=== PATIENT | female | born 1940 | race Caucasian/White ===

== ENCOUNTER 2018-08-11 14:05 | Observation (INO) ==
--- NOTE | 2018-08-11 14:11 | ED ---
Triage General Time Seen by Provider: 08/11/18 14:10 History of Present Illness HPI narrative: 77 y/o female presents with lightheadedness and paresthesias in the right lower lip, some chest heaviness which started last night. Spoke with Dr. Oliva who referred her to ed. Denies other focal neurologic symptoms. Allergies Allergies Allergy/AdvReac Type Severity Reaction Status Date / Time No Known Allergies Allergy Unknown Uncoded 01/08/08 08:47 Vital Signs Recall Vital Signs: Initial Documented Vital Signs Temperature 97.8 F 08/11/18 14:07 Pulse Rate 80 08/11/18 14:07 Respiratory Rate 18 08/11/18 14:07 Blood Pressure 168/74 H 08/11/18 14:07 Pulse Oximetry 97 08/11/18 14:07 Last Documented Vital Signs Temperature 97.8 F 08/11/18 14:07 Pulse Rate 80 08/11/18 14:07 Respiratory Rate 18 08/11/18 14:07 Blood Pressure 168/74 H 08/11/18 14:07 Pulse Oximetry 97 08/11/18 14:07 Vital Signs 3 l l l l 08/11/18 14:07 l l 08/11/18 14:07 l l Height 167.64 cm l l Weight 72.575 kg l l BMI 25.8 l l BP 168/74 H l l Blood Pressure Location l l Position Sitting l l Respiration 18 l l Pulse 80 l l Pulse Source l l Temp 97.8 F l l Temp Source Oral l l Pulse Oximetry (%) 97 l l Oxygen Delivery Method l l Oxygen Flow Rate l l Comment PMFSH Social History Social History Recent Travel in [facility] within the Last 8 Weeks: No Recent Out of Country Travel within the Last 8 Weeks: No
--- NOTE | 2018-08-11 14:56 | CT ---
EXAM DATE: 08/11/2018 2:45 PM EDT AGE/SEX: 77 years / Female INDICATIONS: Dizziness, weakness. CLINICAL DATA: This is the patient's initial encounter. Patient reports that signs and symptoms have been present for 1 day and indicates a pain score of 0/10. MEDICAL/SURGICAL HISTORY: None. None. RADIATION DOSE: 34.94 CTDI (mGy) COMPARISON: No prior exams available for comparison. TECHNIQUE: CT of the head without contrast. Using automated exposure control and adjustment of the mA and/or kV according to patient size, radiation dose was kept as low as reasonably achievable to ob tain optimal diagnostic quality images. DICOM format image data is available electronically for revi ew and comparison. FINDINGS: Cerebrum: The ventricles are normal for age. No evidence of midline shift, mass lesion, hemorrhage or acute infarction. No extraaxial fluid collections are seen. Mild to moderate periventricular and subcortical white matter small vessel ischemic changes are noted bilaterally. Scattered old tiny lacu lisa infarcts are noted within the bilateral basal ganglia. Posterior Fossa: The cerebellum and brainstem are intact. The 4th ventricle is midline. The cerebe llopontine angle is unremarkable. Extracranial: The visualized portion of the orbits is intact. Skull: The calvaria is intact. No evidence of skull fracture. CONCLUSION: 1. Mild to moderate periventricular and subcortical white matter small vessel ischemic changes bilat erally. 2. Scattered old tiny lacunar infarcts within the bilateral basal ganglia. 3. No acute infarct, acute hemorrhage, midline shift or extra-axial fluid collections. . Electronically signed by: Jacob Talbot MD 08/11/2018 2:54 PM EDT
--- NOTE | 2018-08-11 15:27 | XR ---
EXAM DATE: 08/11/2018 3:09 PM EDT AGE/SEX: 77 years / Female INDICATIONS: . Numbness in her lip, syncope, dizzy CLINICAL DATA: This is the patient's initial encounter. Patient reports that signs and symptoms have been present for 2 days and indicates a pain score of 0/10. MEDICAL/SURGICAL HISTORY: . breast cancer, arteries in legs blocked . right breast removed COMPARISON: No prior exams available for comparison. FINDINGS: PA and lateral views of the chest demonstrate the lungs to be symmetrically aerated without evidence of mass, infiltrate or effusion. The cardiomediastinal contours are unremarkable. Osseous structures are intact. There is prominence of the aortic knob is with calcification characteristic of atheroscle rotic vascular disease. CONCLUSION: No acute cardiopulmonary disease. Electronically signed by: Herbert Bermudez MD 08/11/2018 3:25 PM EDT
[2018-08-11] MEDS ORDERED: Labetalol HCl Inj 100 MG/20 ML Vial IV.PUSH ONE (19:21)
[2018-08-11] MEDS ORDERED: Sod Chloride 0.9% Inj 1,000 ML IV.CONT SCH (19:30)
--- NOTE | 2018-08-11 19:34 | ED ---
HPI General Chief complaint: Neuro Symptoms/Deficit Stated complaint: doctor sent Time Seen by Provider: 08/11/18 14:10 Source: patient Limitations: no limitations History of Present Illness HPI narrative: The patient is a 77 year old female who presents to the [facility] emergency department with a history of noticing numbness and tingling to the right side of her lower lip that began around 8:30 PM last night. She reports that the symptoms have been constant. She denies having any numbness or tingling of any other location. She denies having any weakness of her extremities. She denies having any facial droop or difficulty with word finding ability. She denies having any headache, neck pain, chest pain, chest pressure, or shortness of breath. She did discuss this with her primary care physician, Dr. Matias and was told to come to the emergency department. She denies having any prior history of TIA or CVA. The patient is on 324 mg of aspirin daily. She reports that she was on Plavix for peripheral arterial disease status post angioplasty of both legs, however she reports that she had a significant amount of bruising and was switched to just 324 mg of aspirin daily. She denies any prior history of coronary artery disease. Review of systems otherwise, the patient denies having any known recent fevers, cough, congestion, neck pain, chest pain, shortness of breath, abdominal pain, vomiting , diarrhea, urinary symptoms, or other neurologic symptoms. Related Data Home Medications Medication Instructions Recorded Confirmed aspirin [Aspir-81] 324 mg PO DAILY 08/11/18 08/11/18 atorvastatin [Lipitor] 80 mg PO DAILY 08/11/18 08/11/18 calcium carbonate [Calcium 500] 500 mg PO DAILY 08/11/18 08/11/18 lisinopril 10 mg PO DAILY 08/11/18 08/11/18 verapamil 240 mg PO DAILY 08/11/18 08/11/18 Allergies Allergy/AdvReac Type Severity Reaction Status Date / Time acetaminophen [From Percocet] Allergy Vomiting Verified 08/11/18 18:46 betamethasone Allergy Hives Verified 08/11/18 18:46 [From Celestone] oxycodone [From Percocet] Allergy Vomiting Verified 08/11/18 18:46 Review of Systems ROS: all other systems reviewed are negative [facility] Medical History Medical History High cholesterol (Acute) History of breast cancer (Acute) Hypertension (Acute) PAD (peripheral artery disease) (Acute) Peripheral vascular angioplasty status (Acute) Surgical History Surgical History H/O mastectomy (Acute) Hx of appendectomy (Acute) S/P breast biopsy, left (Acute) Social History Social History Smoking Status: Former smoker How Often Do You Have a Drink Containing Alcohol: 2 to 4 times a month Recent Travel in [facility] within the Last 8 Weeks: No Recent Out of Country Travel within the Last 8 Weeks: No Immunization History Tetanus Immunization: <5 Years Hx Influenza Vaccine This Season: No Exam Const General: cooperative, no acute distress and well developed Nutritional Appearance: well nourished Orientation: alert, awake and oriented x3 HENMT Head: normocephalic and atraumatic Nose: no nasal discharge and no epistaxis Mouth: moist mucous membranes Throat: posterior oropharynx normal and uvula midline Eyes Sclera: normal sclerae Pupils: PERRL EOM: EOM intact bilaterally Neck Neck: no meningeal signs, trachea midline and no JVD Resp Effort & Inspection: no use of accessory muscles Auscultation: clear to auscultation bilaterally Cardio Rate: regular rate Rhythm: regular rhythm Heart Sounds: no gallops, no murmurs and no rubs GI Inspection: non-distended Palpation: soft, no hepatosplenomegaly and nontender Auscultation: normal bowel sounds Back/Spine/Pelvis Back: no CVA tenderness Skin General: dry skin (warm) Neuro General: alert, awake and oriented x3 Cranial Nerves: CN's II-XI intact bilaterally Speech: speech normal Motor: strength 5/5 throughout and no movement abnormalities noted Sensory Exam: other (Dermatomal testing is intact bilaterally except along the right side of the chin, the patient reports having decreased sensation compared to the left.) Extrem General: normal to inspection, no clubbing, no cyanosis and no edema Psych Mood: congruent mood Affect: normal affect Judgment: judgment good Course Consultations Consultation #1: The patient's case including history, pertinent physical examination findings, and laboratory studies were discussed with Dr. Hu. He recommended that the patient have an MRI with and without contrast, MRA of the head, MRA of the carotids with contrast done this evening. He at this point does not want any other medications administered. He prefers to be called with the results. Time: 19:31 Consultation #2: The patient's case including history, pertinent physical examination findings, and laboratory studies were discussed with Dr. Razo. It was agreed that the patient would be admitted to the [facility] hospitalist service. Initial Documented Vital Signs Temperature 97.8 F 08/11/18 14:07 Pulse Rate 80 08/11/18 14:07 Respiratory Rate 18 08/11/18 14:07 Blood Pressure 168/74 H 08/11/18 14:07 Pulse Oximetry 97 08/11/18 14:07 Last Documented Vital Signs Temperature 97.8 F 08/12/18 04:39 Pulse Rate 78 08/12/18 04:39 Respiratory Rate 15 08/12/18 04:39 Blood Pressure 181/79 H 08/12/18 04:39 Pulse Oximetry 99 08/12/18 04:39 NIH Stroke Scale NIHSS Time Completed NIHSS Time Completed: 19:27 NIH Stroke Scale Level of Consciousness: 0-Alert Orientation Questions: 0-Answers both correct Responds to Commands: 0-Both tasks correct Gaze Eye Movement: 0-Horizontal movement WNL Visual Chase: 0-No visual field defect Facial Movement: 0-Normal Motor Functions Arm LEFT: 0-No drift Motor Functions Arm RIGHT: 0-No drift Motor Functions Leg LEFT: 0-No drift Motor Functions Leg RIGHT: 0-No drift Limb Ataxia: 0-No ataxia Sensory Loss: 1-Mild sensory loss Best Language: 0-Normal Articulation: 0-Normal Extinction or Inattention Sensory: 0-Absent Total: 1 Medical Decision Making MDM Narrative Medical decision making narrative: The patient's laboratory studies revealedDuring the course of the patient's emergency department visit, the patient's history, examination, and differential diagnosis were reviewed with the patient. The patient was placed on a court recording monitor with oximetry and frequent blood pressure monitoring. The patient had IV access obtained and blood work sent for analysis. The diagnostic evaluation was started regarding the patient's numbness and tingling to the right side of the lower lip. The patient's blood sugar was found to be normal. The patient was initially provided normal saline at 70 mL/h, the patient's head of the bed was placed flat. The patient's blood pressure was 224 systolic on my arrival to the room. The patient was given labetalol 10 mg IV. A call was placed out to the neurologist on-call. I spoke to Dr. Hu regarding this patient's case. He recommended MRIs be done after CT scan if the CT scan shows no evidence of bleeding. CT scan of the brain was read asNegative for hemorrhage, however the patient was noted to have mild to moderate periventricular and subcortical white matter small vessel ischemic changes bilaterally, scattered old tiny lacunar infarcts within the base basal ganglion bilaterally. No acute infarct. No acute hemorrhage, midline shift, or extra-axial fluid collections. The patient had a chest x-ray done that showed no acute abnormality. Laboratory studies revealed a CBC that is unremarkable, PT PTT within normal limits, chemistries remarkable for BUN of 22, GFR 56, AST 42, cardiac enzymes within normal limits. The patient's results were discussed with the patient, including the plan of care. I explained that further testing and/ or monitoring is indicated based on the patient's history, examination, and/ or laboratory findings. Therefore, I recommended admission for additional evaluation. The patient expressed understanding and was agreeable with this plan. The patient was admitted to the hospital in stable condition and sent to a bed under the care of the [facility] hospitalist service. Medical Screen Exam Complete: Yes Emergency Medical Condition: Yes Differential Diagnosis Differential Diagnosis: Ischemic stroke, versus hemorrhagic stroke, versus transient ischemic attack, versus intracranial mass Medical Records Medical records reviewed: Yes I reviewed the patient's medical records. Lab Data Lab results reviewed: Yes I reviewed the patient's lab results. Result diagrams: 08/11/18 19:51 08/11/18 19:51 Lab Results 08/11/18 08/11/18 08/11/18 Range/Units 18:52 19:51 19:51 WBC 5.3 (4.0-11.0) th/mm3 RBC 4.55 (4.00-5.30) mil/mm3 Hgb 14.3 (11.6-15.3) gm/dL Hct 43.1 (35.0-46.0) % MCV 94.9 (80.0-100.0) fL MCH 31.4 (27.0-34.0) pg MCHC 33.1 (32.0-36.0) % RDW 13.9 (11.6-17.2) % Plt Count 184 (150-450) th/mm3 MPV 8.6 (7.0-11.0) fL Neut % (Auto) 58.0 (16.0-70.0) % Lymph % (Auto) 28.8 (9.0-44.0) % Sawyer % (Auto) 9.5 H (0.0-8.0) % Eos % (Auto) 2.3 (0.0-4.0) % Baso % (Auto) 1.4 (0.0-2.0) % Neut # (Auto) 3.1 (1.8-7.7) th/mm3 Lymph # (Auto) 1.5 (1.0-4.8) th/mm3 Sawyer # (Auto) 0.5 (0.0-0.9) th/mm3 Eos # (Auto) 0.1 (0.0-0.4) th/mm3 Baso # (Auto) 0.1 (0.0-0.2) th/mm3 WBC Differential . Differential Comment Auto diff final PT (9.8-11.6) sec INR Ratio APTT (24.3-30.1) sec Sodium 143 (136-145) meq/L Potassium 3.5 (3.5-5.1) meq/L Chloride 105 (98-107) meq/L Carbon Dioxide 27.6 (21.0-32.0) meq/L Anion Gap 10 (5-15) meq/L BUN 22 H (7-18) mg/dL Creatinine 0.96 (0.50-1.00) mg/dL Estimated GFR 56 L (>89) mL/min Random Glucose 87 (74-106) mg/dL Calcium 9.0 (8.5-10.1) mg/dL Total Bilirubin 0.8 (0.2-1.0) mg/dL AST 42 H (15-37) U/L ALT 43 (10-53) U/L Alkaline Phosphatase 100 (45-117) U/L Total Creatine Kinase (26-192) U/L Troponin I (0.02-0.05) ng/mL Total Protein 7.3 (6.4-8.2) g/dL Albumin 3.6 (3.4-5.0) g/dL Urine Color Yellow (Yellw/Straw) Urine Clarity Clear (Clear) Urine pH 6.0 (5.0-8.5) Ur Specific Perley 1.015 (1.002-1.035) Urine Protein Negative (Neg-Trace) mg/dL Urine Glucose (UA) Negative (Negative) mg/dL Urine Ketones Trace H (Negative) mg/dL Urine Occult Blood Negative (Negative) Urine Nitrate Negative (Negative) Urine Bilirubin Negative (Negative) Urine Urobilinogen Less than 2 (Less than 2) mg/dL Ur Leukocyte Esterase Trace H (Negative) Urine RBC Less than 1 (0-3) /hpf Urine WBC 2 (0-5) /hpf Ur Squamous Epith Cells 3 (0-5) /hpf Urine Bacteria Rare H (None) /hpf Hyaline Casts 4 (0-3) /lpf Micro UA Comment Culture not ind Ur Microscopic Review Not Reportable Urine Culture Comments Culture not ind 08/11/18 08/11/18 Range/Units 19:51 19:51 WBC (4.0-11.0) th/mm3 RBC (4.00-5.30) mil/mm3 Hgb (11.6-15.3) gm/dL Hct (35.0-46.0) % MCV (80.0-100.0) fL MCH (27.0-34.0) pg MCHC (32.0-36.0) % RDW (11.6-17.2) % Plt Count (150-450) th/mm3 MPV (7.0-11.0) fL Neut % (Auto) (16.0-70.0) % Lymph % (Auto) (9.0-44.0) % Sawyer % (Auto) (0.0-8.0) % Eos % (Auto) (0.0-4.0) % Baso % (Auto) (0.0-2.0) % Neut # (Auto) (1.8-7.7) th/mm3 Lymph # (Auto) (1.0-4.8) th/mm3 Sawyer # (Auto) (0.0-0.9) th/mm3 Eos # (Auto) (0.0-0.4) th/mm3 Baso # (Auto) (0.0-0.2) th/mm3 WBC Differential Differential Comment PT 10.9 (9.8-11.6) sec INR 1.1 Ratio APTT 24.5 (24.3-30.1) sec Sodium (136-145) meq/L Potassium (3.5-5.1) meq/L Chloride (98-107) meq/L Carbon Dioxide (21.0-32.0) meq/L Anion Gap (5-15) meq/L BUN (7-18) mg/dL Creatinine (0.50-1.00) mg/dL Estimated GFR (>89) mL/min Random Glucose (74-106) mg/dL Calcium (8.5-10.1) mg/dL Total Bilirubin (0.2-1.0) mg/dL AST (15-37) U/L ALT (10-53) U/L Alkaline Phosphatase (45-117) U/L Total Creatine Kinase 83 (26-192) U/L Troponin I Less than 0.02 L (0.02-0.05) ng/mL Total Protein (6.4-8.2) g/dL Albumin (3.4-5.0) g/dL Urine Color (Yellw/Straw) Urine Clarity (Clear) Urine pH (5.0-8.5) Ur Specific Perley (1.002-1.035) Urine Protein (Neg-Trace) mg/dL Urine Glucose (UA) (Negative) mg/dL Urine Ketones (Negative) mg/dL Urine Occult Blood (Negative) Urine Nitrate (Negative) Urine Bilirubin (Negative) Urine Urobilinogen (Less than 2) mg/dL Ur Leukocyte Esterase (Negative) Urine RBC (0-3) /hpf Urine WBC (0-5) /hpf Ur Squamous Epith Cells (0-5) /hpf Urine Bacteria (None) /hpf Hyaline Casts (0-3) /lpf Micro UA Comment Ur Microscopic Review Urine Culture Comments Imaging Data Radiologist's impression: Chest X-Ray 08/11/18 14:11 CONCLUSION: No acute cardiopulmonary disease. Head CT 08/11/18 14:11 CONCLUSION: 1. Mild to moderate periventricular and subcortical white matter small vessel ischemic changes bilaterally. 2. Scattered old tiny lacunar infarcts within the bilateral basal ganglia. 3. No acute infarct, acute hemorrhage, midline shift or extra-axial fluid collections. . Head MRI 08/11/18 19:35 CONCLUSION: 1. Moderate chronic ischemic changes in the periventricular white matter. No recent infarct. Remote small lacunar infarcts in the basal ganglia. Neck MRA 08/11/18 19:36 CONCLUSION: 1. Mild smooth stenoses of the proximal left subclavian artery and proximal internal carotid arteries bilaterally. No hemodynamically significant stenosis. No evidence for dissection. Right vertebral artery is patent. Left vertebral artery is diminutive but patent. Percent stenosis is calculated using the diameter of the stenotic region over the diameter of the normal distal internal carotid artery Head MRA 08/11/18 19:37 CONCLUSION: 1. No hemodynamically significant stenosis. ECG Data Attestation: I personally reviewed and interpreted this ECG as follows: Interpretation: The patient had a EKG done on arrival. The patient's EKG reveals a heart rate of 73, QRS duration is 82. This is a sinus rhythm, QTC [address] segment elevation. Nonspecific ST downsloping and aVL. Discharge Plan Discharge Disposition Patient Disposition: 30 Still Patient Discharge Details Diagnosis: Neurological symptoms Physicians Team ED Provider: Na Beltrán Primary Care Provider: UNKNOWN, Attending Provider: Sergei Razo Other Providers: Sukhdeep Spaulding Discharge Interventions Interventions: ED Discharge Assessment Last Done: 08/11/18 22:36 Vital Signs Last Done: 08/11/18 21:01 Status ED Status: Left Department Discharge Information Discharge Date/Time: 08/11/18 22:37
[2018-08-11 20:24] LABS: Baso # (Auto) 0.1 th/mm3 (0.0-0.2); Baso % (Auto) 1.4 % (0.0-2.0); Eos # (Auto) 0.1 th/mm3 (0.0-0.4); Eos % (Auto) 2.3 % (0.0-4.0); Hematocrit 43.1 % (35.0-46.0); Hemoglobin 14.3 gm/dL (11.6-15.3); Lymph # (Auto) 1.5 th/mm3 (1.0-4.8); Lymph % (Auto) 28.8 % (9.0-44.0); Mean Corpuscular HGB Conc 33.1 % (32.0-36.0); Mean Corpuscular Hemoglobin 31.4 pg (27.0-34.0); Mean Corpuscular Volume 94.9 fL (80.0-100.0); Mean Platelet Volume 8.6 fL (7.0-11.0); Mono # (Auto) 0.5 th/mm3 (0.0-0.9); Mono % (Auto) 9.5 % (0.0-8.0); Neut # (Auto) 3.1 th/mm3 (1.8-7.7); Platelet Count 184 th/mm3 (150-450); Red Blood Count 4.55 mil/mm3 (4.00-5.30); Red Cell Distribution Width 13.9 % (11.6-17.2); White Blood Count 5.3 th/mm3 (4.0-11.0)
[2018-08-11 20:25] LABS: Bacteria,Urine Rare /hpf; Bilirubin,Urine Negative (Negative); Clarity,Urine Clear (Clear); Color,Urine Yellow (Yellw/Straw); Glucose,Urine (UA) Negative (Negative); Hyaline Casts,Urine 4 /lpf (0-3); Leukocyte Esterase,Urine Trace (Negative); Nitrite,Urine Negative (Negative); Specific Gravity,Urine 1.015 (1.002-1.035); Squamous Epithelial Cell,Urine 3 /hpf (0-5)
[2018-08-11 20:25] LABS: Activated Partial Thrombo Time 24.5 sec (24.3-30.1); INR 1.1 Ratio; Prothrombin Time 10.9 sec (9.8-11.6)
[2018-08-11 21:07] LABS: Albumin 3.6 g/dL (3.4-5.0); Anion Gap 10 meq/L (5-15); Aspartate Aminotransferase 42 U/L (15-37); Blood Urea Nitrogen 22 mg/dL (7-18); Carbon Dioxide 27.6 meq/L (21.0-32.0); Chloride 105 meq/L (98-107); Glomerular Filtration Rate 56 mL/min (>89); Glucose,Random 87 mg/dL (74-106); Potassium 3.5 meq/L (3.5-5.1); Sodium 143 meq/L (136-145)
[2018-08-11 21:09] LABS: Alanine Aminotransferase 43 U/L (10-53)
[2018-08-11 21:11] LABS: Alkaline Phosphatase 100 U/L (45-117); Total Protein 7.3 g/dL (6.4-8.2)
[2018-08-11 21:16] LABS: Creatine Kinase 83 U/L (26-192)
[2018-08-11] MEDS ORDERED: Gadobutrol PF 10 MMOL/10 ML Vial (for RAD) IV.SIG ONE (21:51)
--- NOTE | 2018-08-11 22:34 | MR ---
EXAM DATE: 08/11/2018 10:03 PM EDT AGE/SEX: 77 years / Female INDICATIONS: Stroke. Right sided weakness. CLINICAL DATA: This is the patient's initial encounter. Patient reports that signs and symptoms have been present for 1 day and indicates a pain score of 2/10. MEDICAL/SURGICAL HISTORY: Carcinoma, breast. Hypertension. Appendectomy. Tonsillectomy. Mast ectomy, right. Right thumb sx, cyst removed from left breast. COMPARISON: No prior exams available for comparison. TECHNIQUE: Multiplanar, multisequence examination of the brain was performed without and with 10 ml G adavist (gadobutrol) contrast as a single exam dose. FINDINGS: There are moderate changes of chronic white matter is ischemic disease in the periventricular region. Remote small lacunar infarcts in the basal ganglia. No acute infarct identified on the diffusion tex ghted images. No abnormal extra-axial fluid collections. No hydrocephalus. CONCLUSION: 1. Moderate chronic ischemic changes in the periventricular white matter. No recent infarct. Remote small lacunar infarcts in the basal ganglia. Electronically signed by: Kee Tyson MD 08/11/2018 10:33 PM EDT
--- NOTE | 2018-08-11 22:38 | MR ---
EXAM DATE: 08/11/2018 10:14 PM EDT AGE/SEX: 77 years / Female INDICATIONS: Stroke. Right sided weakness. CLINICAL DATA: This is the patient's initial encounter. Patient reports that signs and symptoms have been present for 1 day and indicates a pain score of 3/10. MEDICAL/SURGICAL HISTORY: Carcinoma, breast. Hypertension. Appendectomy. Tonsillectomy. Mast ectomy, right. Right thumb sx, Cyst removed from left breast. COMPARISON: No prior exams available for comparison. TECHNIQUE: 10 ml Gadavist (gadobutrol) contrast infused MRA (single exam dose) of the extracranial circulation was performed using a neurovascular coil. Postprocessing was performed, including rotati ng sub-volume maximum intensity projections of each carotid artery, rotating full-volume maximum inte nsity projections of both carotid arteries, sagittal and coronal sliding thin-slab reformations of ea ch carotid artery, and left oblique sliding thin-slab reformation through the aortic arch to include the origin of the arch branch vessels. FINDINGS: Great vessel origins reveal a mild smooth stenosis of the proximal left subclavian artery. Proximal b rachiocephalic artery and left common carotid artery are patent. Right common carotid artery is patent. There is mild plaque formation at both carotid bifurcations wi th a smooth mild stenosis. No hemodynamically significant stenosis is identified. Both internal carot id arteries are patent in the mid and distal portions. CONCLUSION: 1. Mild smooth stenoses of the proximal left subclavian artery and proximal internal carotid arterie s bilaterally. No hemodynamically significant stenosis. No evidence for dissection. Right vertebral a rtery is patent. Left vertebral artery is diminutive but patent. Percent stenosis is calculated using the diameter of the stenotic region over the diameter of the nor mal distal internal carotid artery Electronically signed by: Kee Tyson MD 08/11/2018 10:36 PM EDT
--- NOTE | 2018-08-11 22:39 | MR ---
EXAM DATE: 08/11/2018 9:50 PM EDT AGE/SEX: 77 years / Female INDICATIONS: Stroke. Right sided weakness. CLINICAL DATA: This is the patient's initial encounter. Patient reports that signs and symptoms have been present for 1 day and indicates a pain score of 2/10. MEDICAL/SURGICAL HISTORY: Carcinoma, breast. Hypertension. Appendectomy. Tonsillectomy. Right thumb sx, Cyst removed in left breast. COMPARISON: No prior exams available for comparison. TECHNIQUE: 3D [id number] MRA was performed. Source images, multiplanar STS MIP, and 3D volum e MIP reconstructions were reviewed. FINDINGS: The distal internal carotid arteries and basilar artery are patent. No hemodynamically significant st enosis is identified in the anterior, middle and posterior cerebral artery. No discrete aneurysm or d issection. CONCLUSION: 1. No hemodynamically significant stenosis. Electronically signed by: Kee Tyson MD 08/11/2018 10:38 PM EDT
--- NOTE | 2018-08-12 08:07 | ECG ---
Date Performed: 08/11/2018 Time Performed: 14:30:34 PTAGE: 77 years EKG: NORMAL Sinus rhythm Nonspecific ST and T wave abnormalities Baseline artifact Compared to previous tracing there are now nonspecific ST T wave changes ABNORMAL ECG PREVIOUS TRACING : 07/30/2007 08.35 DOCTOR: Lesley Levine Interpretating Date/Time 08/13/2018 07:22:49
--- NOTE | 2018-08-12 08:08 | ECG ---
Date Performed: 08/11/2018 Time Performed: 19:25:21 PTAGE: 77 years EKG: Sinus rhythm Nonspecific ST and T wave abnormalities Since the previous tracing, no significant change noted [facility] ECG PREVIOUS TRACING : 08/11/2018 14.30 DOCTOR: Lesley Levine Interpretating Date/Time 08/12/2018 08:07:42
--- NOTE | 2018-08-12 12:37 | P.HP ---
<Sergei Razo - Last Filed: 08/12/18 15:07> History of Present Illness Primary Care Physician: UNKNOWN - Diagnosis (1) Neurological symptoms PMFSH - Medical History Medical History: Medical History (Last Reviewed 08/12/18 @ 07:52 by Evy Yee) High cholesterol Hypertension PAD (peripheral artery disease) History of breast cancer Peripheral vascular angioplasty status - Surgical History Surgical History: Surgical History (Last Reviewed 08/12/18 @ 07:52 by Evy Yee) H/O mastectomy Hx of appendectomy S/P breast biopsy, left Medications and Allergies Allergies Allergy/AdvReac Type Severity Reaction Status Date / Time acetaminophen [From Percocet] Allergy Vomiting Verified 08/11/18 18:46 betamethasone Allergy Hives Verified 08/11/18 18:46 [From Celestone] oxycodone [From Percocet] Allergy Vomiting Verified 08/11/18 18:46 Home Medications Medication Instructions Recorded Confirmed Type aspirin [Aspir-81] 324 mg PO DAILY 08/11/18 08/11/18 History atorvastatin [Lipitor] 80 mg PO DAILY 08/11/18 08/11/18 History calcium carbonate [Calcium 500] 500 mg PO DAILY 08/11/18 08/11/18 History lisinopril 10 mg PO DAILY 08/11/18 08/11/18 History verapamil 240 mg PO DAILY 08/11/18 08/11/18 History Active Medications: Active Medications Acetaminophen (Tylenol) 500 mg PO Q6H PRN PRN Reason: headache Aspirin (Aspirin) 325 mg PO DAILY [facility] Last Admin: 08/12/18 13:29 Dose: 325 mg Atorvastatin Calcium (Lipitor) 80 mg PO DAILY [facility] Last Admin: 08/12/18 08:54 Dose: 80 mg Enalaprilat (Vasotec Inj) 1.25 mg IV.PUSH Q4H PRN PRN Reason: sbp > 220 Sodium Chloride (Ns Flush) 2 ml IV.FLUSH PRN PRN PRN Reason: FLUSH AFTER USING IV ACCESS Exam Vital signs: Vital Signs 08/11/18 18:53 08/11/18 19:23 08/11/18 21:01 Temperature Pulse Rate 72 79 64 Respiratory Rate 16 18 20 Blood Pressure 217/85 H 224/92 H 189/76 H Pulse Oximetry 100 98 96 08/11/18 23:04 08/12/18 00:00 08/12/18 02:21 Temperature 97.2 F L 97.5 F L Pulse Rate 68 73 Respiratory Rate 18 16 16 Blood Pressure 167/72 H 180/74 H Pulse Oximetry 97 96 08/12/18 03:22 08/12/18 04:00 08/12/18 04:39 Temperature 97.8 F Pulse Rate 75 71 78 Respiratory Rate 15 Blood Pressure 181/79 H Pulse Oximetry 99 08/12/18 08:00 08/12/18 12:00 Temperature 97.8 F 98 F Pulse Rate 72 72 Respiratory Rate 16 16 Blood Pressure 185/76 H 171/62 H Pulse Oximetry 94 L 97 Intake & Output 08/11/18 08/12/18 08/12/18 18:59 06:59 18:59 Intake Total 1000.1 / 1000.1 Balance 1000.1 / 1000.1 Weight 72.575 kg 69.9 kg Intake: IV 1000.1 / 1000.1 NS Inj 1,000 ML @ 70 mls/hr IV. 1000.1 / 1000.1 CONT .[id number] [facility] Rx#:[id number] Other: # Voids 6 Weight On Admission 69.9 kg Results - Labs CBC & Chem 7: 08/11/18 19:51 08/11/18 19:51 Labs: Laboratory Results - last 24 hr 08/11/18 08/11/18 08/11/18 18:52 19:51 19:51 WBC 5.3 RBC 4.55 Hgb 14.3 Hct 43.1 MCV 94.9 MCH 31.4 MCHC 33.1 RDW 13.9 Plt Count 184 MPV 8.6 Neut % (Auto) 58.0 Lymph % (Auto) 28.8 Morton % (Auto) 9.5 H Eos % (Auto) 2.3 Baso % (Auto) 1.4 Neut # (Auto) 3.1 Lymph # (Auto) 1.5 Morton # (Auto) 0.5 Eos # (Auto) 0.1 Baso # (Auto) 0.1 WBC Differential . Differential Comment Auto diff final PT INR APTT Sodium 143 Potassium 3.5 Chloride 105 Carbon Dioxide 27.6 Anion Gap 10 BUN 22 H Creatinine 0.96 Estimated GFR 56 L Random Glucose 87 Calcium 9.0 Total Bilirubin 0.8 AST 42 H ALT 43 Alkaline Phosphatase 100 Total Creatine Kinase Troponin I Total Protein 7.3 Albumin 3.6 Urine Color Yellow Urine Clarity Clear Urine pH 6.0 Ur Specific [place] 1.015 Urine Protein Negative Urine Glucose (UA) Negative Urine Ketones Trace H Urine Occult Blood Negative Urine Nitrate Negative Urine Bilirubin Negative Urine Urobilinogen Less than 2 Ur Leukocyte Esterase Trace H Urine RBC Less than 1 Urine WBC 2 Ur Squamous Epith Cells 3 Urine Bacteria Rare H Hyaline Casts 4 Micro UA Comment Culture not ind Ur Microscopic Review Not Reportable Urine Culture Comments Culture not ind 08/11/18 08/11/18 19:51 19:51 WBC RBC Hgb Hct MCV MCH MCHC RDW Plt Count MPV Neut % (Auto) Lymph % (Auto) [place] % (Auto) Eos % (Auto) Baso % (Auto) Neut # (Auto) Lymph # (Auto) [place] # (Auto) Eos # (Auto) Baso # (Auto) WBC Differential Differential Comment PT 10.9 INR 1.1 APTT 24.5 Sodium Potassium Chloride Carbon Dioxide Anion Gap BUN Creatinine Estimated GFR Random Glucose Calcium Total Bilirubin AST ALT Alkaline Phosphatase Total Creatine Kinase 83 Troponin I Less than 0.02 L Total Protein Albumin Urine Color Urine Clarity Urine pH Ur Specific [place] Urine Protein Urine Glucose (UA) Urine Ketones Urine Occult Blood Urine Nitrate Urine Bilirubin Urine Urobilinogen Ur Leukocyte Esterase Urine RBC Urine WBC Ur Squamous Epith Cells Urine Bacteria Hyaline Casts Micro UA Comment Ur Microscopic Review Urine Culture Comments - Imaging Impressions Chest X-Ray 08/11/18 14:11 CONCLUSION: No acute cardiopulmonary disease. Head MRI 08/11/18 19:35 CONCLUSION: 1. Moderate chronic ischemic changes in the periventricular white matter. No recent infarct. Remote small lacunar infarcts in the basal ganglia. Neck MRA 08/11/18 19:36 CONCLUSION: 1. Mild smooth stenoses of the proximal left subclavian artery and proximal internal carotid arteries bilaterally. No hemodynamically significant stenosis. No evidence for dissection. Right vertebral artery is patent. Left vertebral artery is diminutive but patent. Percent stenosis is calculated using the diameter of the stenotic region over the diameter of the normal distal internal carotid artery Head MRA 08/11/18 19:37 CONCLUSION: 1. No hemodynamically significant stenosis. Caprini VTE Risk Assessment Caprini Risk Assessment Model: Point Value = 1 Point Value = 2 Point Value = 3 Point Value = 5 Age 41-60 Minor surgery BMI > 25 kg/m2 Swollen legs Varicose veins or History of unexplained or recurrent spontaneous Oral contraceptives or hormone replacement Sepsis (< 1 month) Serious lung disease, including pneumonia (< 1 month) Abnormal pulmonary function Acute myocardial infarction Congestive heart failure (< 1 month) History of inflammatory bowel disease Medical patient at bed rest Age 61-74 Arthroscopic surgery Major open surgery (> 45 min) Laparoscopic surgery (> 45 min) Malignancy Confined to bed (> 72 hours) Immobilizing plaster cast Central venous access Age >= 75 History of VTE Family history of VTE Factor V Leiden Prothrombin [id number] Lupus anticoagulant Anticardiolipin antibodies Elevated serum homocysteine Heparin-induced thrombocytopenia Other congenital or acquired thrombophilia Stroke (< 1 month) Elective arthroplasty Hip, pelvis, or leg fracture Acute spinal cord injury (< 1 month) Prophylaxis Regimen: Total Risk Factor Score Risk Level Prophylaxis Regimen 0-1 Low Early ambulation 2 Moderate Order ONE of the following: *Sequential Compression Device (SCD) *Heparin 5000 units SQ BID 3-4 Higher Order ONE of the following medications: *Heparin 5000 units SQ TID *Enoxaparin/Lovenox 40 mg SQ daily (WT < 150 kg, CrCl > 30 mL/min) *Enoxaparin/Lovenox 30 mg SQ daily (WT < 150 kg, CrCl > 10-29 mL/min) *Enoxaparin/Lovenox 30 mg SQ BID (WT < 150 kg, CrCl > 30 mL/min) AND/OR *Sequential Compression Device (SCD) 5 or more Highest Order ONE of the following medications: *Heparin 5000 units SQ TID (Preferred with Epidurals) *Enoxaparin/Lovenox 40 mg SQ daily (WT < 150 kg, CrCl > 30 mL/min) *Enoxaparin/Lovenox 30 mg SQ daily (WT < 150 kg, CrCl > 10-29 mL/min) *Enoxaparin/Lovenox 30 mg SQ BID (WT < 150 kg, CrCl > 30 mL/min) AND *Sequential Compression Device (SCD) Assessment and Plan - Assessment (1) Neurological symptoms Code(s): R29.90 - Unspecified symptoms and signs involving the nervous system Status: Acute Plan: possible tia. right facial/tongue numbness. 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 pt was on asa. had problems with bruising on plavix in past but willing to try it again. no afib so far. severe htn on admission. await neurology evaluation. pt eager for dc home. needs close bp f/u with pcp. <Haley Amanda W - Last Filed: 08/12/18 16:58> History of Present Illness Primary Care Physician: UNKNOWN Chief Complaint: Numbness/tingling right lower lip since Saturday History of Present Illness: This is a 77-year-old female patient with past medical history which includes right breast cancer status post right mastectomy and chemotherapy 2000, arthritis, hyperlipidemia, hypertension, peripheral arterial disease in the lower extremities. Patient presents to emergency department last night with complaints of constant right lower lip numbness/tingling since Saturday night. Patient denies difficulty swallowing changes in speech or difficulty with word finding. There is no upper or lower extremity weakness. Patient also denies headache fevers chills nausea vomiting diarrhea constipation shortness of breath or chest pain. PMH: right breast cancer status post right mastectomy and chemotherapy 2000, arthritis, hyperlipidemia, hypertension, peripheral arterial disease in the lower extremities PSxH: Right breast mastectomy 2000, right thumb surgery, cyst removed from the groin, cyst removed from the left breast, tonsillectomy, appendectomy Social history: Patient lives at home with Reports EtOH use socially not on a daily basis With smoking and 2000 prior to that smoked half a pack a day for 20 years Family medical history: Heart disease, CVA, diabetes mellitus Review of Systems All other systems reviewed negative except as stated in HPI [facility] - History History Provided By: Patient - Medical History Medical History: Medical History (Last Reviewed 08/12/18 @ 07:52 by Evy Yee) High cholesterol Hypertension PAD (peripheral artery disease) History of breast cancer Peripheral vascular angioplasty status - Surgical History Surgical History: Surgical History (Last Reviewed 08/12/18 @ 07:52 by Evy Yee) H/O mastectomy Hx of appendectomy S/P breast biopsy, left - Tobacco History Smoking Status: Former smoker - Alcohol History How Often Do You Have a Drink Containing Alcohol: 2 to 4 times a month - Travel History Recent Travel in the [place] Within the Last 8 Weeks: No Recent Travel Out of the Country Within the Last 8 Weeks: No - Immunization History Tetanus Immunization: <5 Years Hx Influenza Vaccine This Season: No Medications and Allergies Active Medications: Active Medications Atorvastatin Calcium (Lipitor) 80 mg PO DAILY [facility] Last Admin: 08/12/18 08:54 Dose: 80 mg Enalaprilat (Vasotec Inj) 1.25 mg IV.PUSH Q4H PRN PRN Reason: sbp > 220 Sodium Chloride (Ns Flush) 2 ml IV.FLUSH PRN PRN PRN Reason: FLUSH AFTER USING IV ACCESS Exam Vital signs: Vital Signs 08/11/18 14:07 08/11/18 18:53 08/11/18 19:23 Temperature 97.8 F Pulse Rate 80 72 79 Respiratory Rate 18 16 18 Blood Pressure 168/74 H 217/85 H 224/92 H Pulse Oximetry 97 100 98 08/11/18 21:01 08/11/18 23:04 08/12/18 00:00 Temperature 97.2 F L 97.5 F L Pulse Rate 64 68 73 Respiratory Rate 20 18 16 Blood Pressure 189/76 H 167/72 H 180/74 H Pulse Oximetry 96 97 96 08/12/18 02:21 08/12/18 03:22 08/12/18 04:00 Temperature Pulse Rate 75 71 Respiratory Rate 16 Blood Pressure Pulse Oximetry 08/12/18 04:39 08/12/18 08:00 08/12/18 12:00 Temperature 97.8 F 97.8 F 98 F Pulse Rate 78 72 72 Respiratory Rate 15 16 16 Blood Pressure 181/79 H 185/76 H 171/62 H Pulse Oximetry 99 94 L 97 Intake & Output 08/11/18 08/12/18 08/12/18 18:59 06:59 18:59 Intake Total 1000.1 / 1000.1 Balance 1000.1 / 1000.1 Weight 72.575 kg 69.9 kg Intake: IV 999.999.1 NS Inj 1,000 ML @ 70 mls/hr IV. 999.999.1 CONT .[id number] [facility] Rx#:[id number] Other: # Voids 6 Weight On Admission 69.9 kg Narrative: GENERAL: This is a well-nourished, well-developed patient, in no apparent distress. CARDIOVASCULAR: Regular rate and rhythm RESPIRATORY: Clear to auscultation. Breath sounds equal bilaterally. GASTROINTESTINAL: Abdomen soft, non-tender, nondistended. Normal active bowel sounds MUSCULOSKELETAL: Extremities without clubbing, cyanosis, or edema. NEURO: Alert & Oriented. Moves all ext x4. Bilateral upper and lower extremities equal strength. Mild resting facial droop on the right Results - Labs CBC & Chem 7: 08/11/18 19:51 08/11/18 19:51 Labs: Laboratory Results - last 24 hr 08/11/18 08/11/18 08/11/18 18:52 19:51 19:51 WBC 5.3 RBC 4.55 Hgb 14.3 Hct 43.1 MCV 94.9 MCH 31.4 MCHC 33.1 RDW 13.9 Plt Count 184 MPV 8.6 Neut % (Auto) 58.0 Lymph % (Auto) 28.8 [place] % (Auto) 9.5 H Eos % (Auto) 2.3 Baso % (Auto) 1.4 Neut # (Auto) 3.1 Lymph # (Auto) 1.5 [place] # (Auto) 0.5 Eos # (Auto) 0.1 Baso # (Auto) 0.1 WBC Differential . Differential Comment Auto diff final PT INR APTT Sodium 143 Potassium 3.5 Chloride 105 Carbon Dioxide 27.6 Anion Gap 10 BUN 22 H Creatinine 0.96 Estimated GFR 56 L Random Glucose 87 Calcium 9.0 Total Bilirubin 0.8 AST 42 H ALT 43 Alkaline Phosphatase 100 Total Creatine Kinase Troponin I Total Protein 7.3 Albumin 3.6 Urine Color Yellow Urine Clarity Clear Urine pH 6.0 Ur Specific [place] 1.015 Urine Protein Negative Urine Glucose (UA) Negative Urine Ketones Trace H Urine Occult Blood Negative Urine Nitrate Negative Urine Bilirubin Negative Urine Urobilinogen Less than 2 Ur Leukocyte Esterase Trace H Urine RBC Less than 1 Urine WBC 2 Ur Squamous Epith Cells 3 Urine Bacteria Rare H Hyaline Casts 4 Micro UA Comment Culture not ind Ur Microscopic Review Not Reportable Urine Culture Comments Culture not ind 08/11/18 08/11/18 19:51 19:51 WBC RBC Hgb Hct MCV MCH MCHC RDW Plt Count MPV Neut % (Auto) Lymph % (Auto) [place] % (Auto) Eos % (Auto) Baso % (Auto) Neut # (Auto) Lymph # (Auto) [place] # (Auto) Eos # (Auto) Baso # (Auto) WBC Differential Differential Comment PT 10.9 INR 1.1 APTT 24.5 Sodium Potassium Chloride Carbon Dioxide Anion Gap BUN Creatinine Estimated GFR Random Glucose Calcium Total Bilirubin AST ALT Alkaline Phosphatase Total Creatine Kinase 83 Troponin I Less than 0.02 L Total Protein Albumin Urine Color Urine Clarity Urine pH Ur Specific [place] Urine Protein Urine Glucose (UA) Urine Ketones Urine Occult Blood Urine Nitrate Urine Bilirubin Urine Urobilinogen Ur Leukocyte Esterase Urine RBC Urine WBC Ur Squamous Epith Cells Urine Bacteria Hyaline Casts Micro UA Comment Ur Microscopic Review Urine Culture Comments - Imaging Impressions Chest X-Ray 08/11/18 14:11 CONCLUSION: No acute cardiopulmonary disease. Head CT 08/11/18 14:11 CONCLUSION: 1. Mild to moderate periventricular and subcortical white matter small vessel ischemic changes bilaterally. 2. Scattered old tiny lacunar infarcts within the bilateral basal ganglia. 3. No acute infarct, acute hemorrhage, midline shift or extra-axial fluid collections. . Head MRI 08/11/18 19:35 CONCLUSION: 1. Moderate chronic ischemic changes in the periventricular white matter. No recent infarct. Remote small lacunar infarcts in the basal ganglia. Neck MRA 08/11/18 19:36 CONCLUSION: 1. Mild smooth stenoses of the proximal left subclavian artery and proximal internal carotid arteries bilaterally. No hemodynamically significant stenosis. No evidence for dissection. Right vertebral artery is patent. Left vertebral artery is diminutive but patent. Percent stenosis is calculated using the diameter of the stenotic region over the diameter of the normal distal internal carotid artery Head MRA 08/11/18 19:37 CONCLUSION: 1. No hemodynamically significant stenosis. Caprini VTE Risk Assessment Caprini VTE Risk Assessment: Moderate/High Risk (score >= 2) Caprini Risk Assessment Model: Point Value = 1 Point Value = 2 Point Value = 3 Point Value = 5 Age 41-60 Minor surgery BMI > 25 kg/m2 Swollen legs Varicose veins or History of unexplained or recurrent spontaneous Oral contraceptives or hormone replacement Sepsis (< 1 month) Serious lung disease, including pneumonia (< 1 month) Abnormal pulmonary function Acute myocardial infarction Congestive heart failure (< 1 month) History of inflammatory bowel disease Medical patient at bed rest Age 61-74 Arthroscopic surgery Major open surgery (> 45 min) Laparoscopic surgery (> 45 min) Malignancy Confined to bed (> 72 hours) Immobilizing plaster cast Central venous access Age >= 75 History of VTE Family history of VTE Factor V Leiden Prothrombin [id number] Lupus anticoagulant Anticardiolipin antibodies Elevated serum homocysteine Heparin-induced thrombocytopenia Other congenital or acquired thrombophilia Stroke (< 1 month) Elective arthroplasty Hip, pelvis, or leg fracture Acute spinal cord injury (< 1 month) Prophylaxis Regimen: Total Risk Factor Score Risk Level Prophylaxis Regimen 0-1 Low Early ambulation 2 Moderate Order ONE of the following: *Sequential Compression Device (SCD) *Heparin 5000 units SQ BID 3-4 Higher Order ONE of the following medications: *Heparin 5000 units SQ TID *Enoxaparin/Lovenox 40 mg SQ daily (WT < 150 kg, CrCl > 30 mL/min) *Enoxaparin/Lovenox 30 mg SQ daily (WT < 150 kg, CrCl > 10-29 mL/min) *Enoxaparin/Lovenox 30 mg SQ BID (WT < 150 kg, CrCl > 30 mL/min) AND/OR *Sequential Compression Device (SCD) 5 or more Highest Order ONE of the following medications: *Heparin 5000 units SQ TID (Preferred with Epidurals) *Enoxaparin/Lovenox 40 mg SQ daily (WT < 150 kg, CrCl > 30 mL/min) *Enoxaparin/Lovenox 30 mg SQ daily (WT < 150 kg, CrCl > 10-29 mL/min) *Enoxaparin/Lovenox 30 mg SQ BID (WT < 150 kg, CrCl > 30 mL/min) AND *Sequential Compression Device (SCD)
[2018-08-12] MEDS ORDERED: Acetaminophen 500 MG Tablet PO PRN (13:20)
[2018-08-12] MEDS: Aspirin 325 MG Tablet PO SCH (13:29)
--- NOTE | 2018-08-12 16:38 | P.CONNEU ---
History of Present Illness Service: Neurology Primary Care Provider: UNKNOWN Chief Complaint: Numbness/tingling right lower lip since Saturday night History of Present Illness: 77-year-old female with numbness around the right corner of her mouth the past few days that she woke up with. Does not progress is not involved in any other part of her face arm and leg. She takes aspirin daily. Denies any weakness headaches sick contacts any head or neck trauma. Denies any numbness or paresthesias in her distal extremities. History of breast cancer in remission. Review of Systems All other systems reviewed negative except as stated [facility] - History History Provided By: Patient - Medical History Medical History: Medical History (Last Reviewed 08/12/18 @ 07:52 by Evy Yee) High cholesterol Hypertension PAD (peripheral artery disease) History of breast cancer Peripheral vascular angioplasty status - Surgical History Surgical History: Surgical History (Last Reviewed 08/12/18 @ 07:52 by Evy Yee) H/O mastectomy Hx of appendectomy S/P breast biopsy, left - Tobacco History Smoking Status: Former smoker - Alcohol History How Often Do You Have a Drink Containing Alcohol: 2 to 4 times a month - Travel History Recent Travel in the [facility] Within the Last 8 Weeks: No Recent Travel Out of the Country Within the Last 8 Weeks: No - Immunization History Tetanus Immunization: <5 Years Hx Influenza Vaccine This Season: No Medications and Allergies Active Medications: Active Medications Acetaminophen (Tylenol) 500 mg PO Q6H PRN PRN Reason: headache Aspirin (Aspirin) 325 mg PO DAILY [facility] Last Admin: 08/12/18 13:29 Dose: 325 mg Atorvastatin Calcium (Lipitor) 80 mg PO DAILY [facility] Last Admin: 08/12/18 08:54 Dose: 80 mg Enalaprilat (Vasotec Inj) 1.25 mg IV.PUSH Q4H PRN PRN Reason: sbp > 220 Sodium Chloride (Ns Flush) 2 ml IV.FLUSH PRN PRN PRN Reason: FLUSH AFTER USING IV ACCESS Allergies Allergy/AdvReac Type Severity Reaction Status Date / Time acetaminophen [From Percocet] Allergy Vomiting Verified 08/11/18 18:46 betamethasone Allergy Hives Verified 08/11/18 18:46 [From Celestone] oxycodone [From Percocet] Allergy Vomiting Verified 08/11/18 18:46 Home Medications Medication Instructions Recorded Confirmed Type aspirin [Aspir-81] 324 mg PO DAILY 08/11/18 08/11/18 History atorvastatin [Lipitor] 80 mg PO DAILY 08/11/18 08/11/18 History calcium carbonate [Calcium 500] 500 mg PO DAILY 08/11/18 08/11/18 History lisinopril 10 mg PO DAILY 08/11/18 08/11/18 History verapamil 240 mg PO DAILY 08/11/18 08/11/18 History Exam Vital signs: Vital Signs 08/11/18 18:53 08/11/18 19:23 08/11/18 21:01 Temperature Pulse Rate 72 79 64 Respiratory Rate 16 18 20 Blood Pressure 217/85 H 224/92 H 189/76 H Pulse Oximetry 100 98 96 08/11/18 23:04 08/12/18 00:00 08/12/18 02:21 Temperature 97.2 F L 97.5 F L Pulse Rate 68 73 Respiratory Rate 18 16 16 Blood Pressure 167/72 H 180/74 H Pulse Oximetry 97 96 08/12/18 03:22 08/12/18 04:00 08/12/18 04:39 Temperature 97.8 F Pulse Rate 75 71 78 Respiratory Rate 15 Blood Pressure 181/79 H Pulse Oximetry 99 08/12/18 08:00 08/12/18 12:00 08/12/18 16:00 Temperature 97.8 F 98 F 97.9 F Pulse Rate 72 72 80 Respiratory Rate 16 16 16 Blood Pressure 185/76 H 171/62 H 173/74 H Pulse Oximetry 94 L 97 96 Intake & Output 08/11/18 08/12/18 08/12/18 18:59 06:59 18:59 Intake Total 1000.1 / 1000.1 Balance 1000.1 / 1000.1 Weight 72.575 kg 69.9 kg Intake: IV 1000.1 / 1000.1 NS Inj 1,000 ML @ 70 mls/hr IV. 1000.1 / 1000.1 CONT .[id number] [facility] Rx#:[id number] Other: # Voids 6 Weight On Admission 69.9 kg Narrative: GENERAL: in NAD, SKIN: Warm and dry. HEAD: Atraumatic. Normocephalic. EYES: Pupils equal and round. No scleral icterus. ENT: No nasal bleeding or discharge. Mucous membranes pink and moist. NECK: Trachea midline. No JVD. CARDIOVASCULAR: Regular rate and rhythm. RESPIRATORY: No accessory muscle use. Clear to auscultation. GASTROINTESTINAL: Abdomen soft, non-tender, nondistended. MUSCULOSKELETAL: Extremities without clubbing, cyanosis, or edema. No obvious deformities. NEUROLOGICAL: Awake and alert. Oriented 3 no aphasia, fluent articulate, No facial asymmetry, slightly reduced pinprick corner of her right mouth slightly upper lower lip. Chin rest of her face was normal no ptosis no facial weakness OU 3-2mm, eomi, VFF, No drift, Motor grossly within normal limits. Five out of 5 muscle strength in the arms and legs. Tone normal in all 4 limbs, Sensory normal in all 4 extremities to pin, msr 1-2+ sym, no clonus, planterflexor, gait not assessed secondary fall risk PSYCHIATRIC: Appropriate mood and affect; insight and judgment normal. - Constitutional no acute distress - Routine HEENT Exam Head: Present: normocephalic Eye: Present: EOMI Results - Labs CBC & Chem 7: 08/11/18 19:51 08/11/18 19:51 Labs: Laboratory Results - last 24 hr 08/11/18 08/11/18 08/11/18 18:52 19:51 19:51 WBC 5.3 RBC 4.55 Hgb 14.3 Hct 43.1 MCV 94.9 MCH 31.4 MCHC 33.1 RDW 13.9 Plt Count 184 MPV 8.6 Neut % (Auto) 58.0 Lymph % (Auto) 28.8 [place] % (Auto) 9.5 H Eos % (Auto) 2.3 Baso % (Auto) 1.4 Neut # (Auto) 3.1 Lymph # (Auto) 1.5 [place] # (Auto) 0.5 Eos # (Auto) 0.1 Baso # (Auto) 0.1 WBC Differential . Differential Comment Auto diff final PT INR APTT Sodium 143 Potassium 3.5 Chloride 105 Carbon Dioxide 27.6 Anion Gap 10 BUN 22 H Creatinine 0.96 Estimated GFR 56 L Random Glucose 87 Calcium 9.0 Total Bilirubin 0.8 AST 42 H ALT 43 Alkaline Phosphatase 100 Total Creatine Kinase Troponin I Total Protein 7.3 Albumin 3.6 Urine Color Yellow Urine Clarity Clear Urine pH 6.0 Ur Specific [place] 1.015 Urine Protein Negative Urine Glucose (UA) Negative Urine Ketones Trace H Urine Occult Blood Negative Urine Nitrate Negative Urine Bilirubin Negative Urine Urobilinogen Less than 2 Ur Leukocyte Esterase Trace H Urine RBC Less than 1 Urine WBC 2 Ur Squamous Epith Cells 3 Urine Bacteria Rare H Hyaline Casts 4 Micro UA Comment Culture not ind Ur Microscopic Review Not Reportable Urine Culture Comments Culture not ind 08/11/18 08/11/18 19:51 19:51 WBC RBC Hgb Hct MCV MCH MCHC RDW Plt Count MPV Neut % (Auto) Lymph % (Auto) [place] % (Auto) Eos % (Auto) Baso % (Auto) Neut # (Auto) Lymph # (Auto) [place] # (Auto) Eos # (Auto) Baso # (Auto) WBC Differential Differential Comment PT 10.9 INR 1.1 APTT 24.5 Sodium Potassium Chloride Carbon Dioxide Anion Gap BUN Creatinine Estimated GFR Random Glucose Calcium Total Bilirubin AST ALT Alkaline Phosphatase Total Creatine Kinase 83 Troponin I Less than 0.02 L Total Protein Albumin Urine Color Urine Clarity Urine pH Ur Specific [place] Urine Protein Urine Glucose (UA) Urine Ketones Urine Occult Blood Urine Nitrate Urine Bilirubin Urine Urobilinogen Ur Leukocyte Esterase Urine RBC Urine WBC Ur Squamous Epith Cells Urine Bacteria Hyaline Casts Micro UA Comment Ur Microscopic Review Urine Culture Comments - Imaging Impressions Head MRI 08/11/18 19:35 CONCLUSION: 1. Moderate chronic ischemic changes in the periventricular white matter. No recent infarct. Remote small lacunar infarcts in the basal ganglia. Neck MRA 08/11/18 19:36 CONCLUSION: 1. Mild smooth stenoses of the proximal left subclavian artery and proximal internal carotid arteries bilaterally. No hemodynamically significant stenosis. No evidence for dissection. Right vertebral artery is patent. Left vertebral artery is diminutive but patent. Percent stenosis is calculated using the diameter of the stenotic region over the diameter of the normal distal internal carotid artery Head MRA 08/11/18 19:37 CONCLUSION: 1. No hemodynamically significant stenosis. Review/Management - Diagnosis (1) Neurological symptoms Code(s): R29.90 - Unspecified symptoms and signs involving the nervous system Status: Acute Current Visit: Yes (2) Hypertension Code(s): I10 - Essential (primary) hypertension Status: Acute Current Visit : Yes (3) Hyperlipidemia Code(s): E78.5 - Hyperlipidemia, unspecified Status: Acute Current Visit: Yes (4) History of breast cancer Code(s): Z85.3 - Personal history of malignant neoplasm of breast Status: Acute Current Visit: Yes - Review/Management Plan: No acute stroke seen on MRI scan. Etiology would include demyelinating lesion versus right lower trigeminal neuropathy MRI brain scan demonstrates moderate white matter lesions and disease. Multiple sclerosis would be a possibility although is of older age he does not have a whole lot of other neurological symptoms. Emerging neuropathy or metabolic/infiltrating abnormality affecting trigeminal nerve is another possibility. There did not appear to be any mentalis nerve involvement however Recommendations Continue aspirin Plavix Risk factor reduction blood pressure control If she states she bruises more easily on Plavix, will look at discontinuing it in 4-6 weeks Discussed with patient and spouse We will follow her up in the outpatient setting. If her symptoms persist after a few weeks will need to consider a lumbar puncture
--- NOTE | 2018-08-12 16:54 | P.DS ---
Date of admission: 08/11/18 21:11 Primary care physician: UNKNOWN Attending physician on discharge: Sergei Razo Anticipated date of discharge: 08/12/18 Brief History from admission: This is a 77-year-old female patient with past medical history which includes right breast cancer status post right mastectomy and chemotherapy 2000, arthritis, hyperlipidemia, hypertension, peripheral arterial disease in the lower extremities. Patient presents to emergency department last night with complaints of constant right lower lip numbness/tingling since Saturday night. Patient denies difficulty swallowing changes in speech or difficulty with word finding. There is no upper or lower extremity weakness. Patient also denies headache fevers chills nausea vomiting diarrhea constipation shortness of breath or chest pain. PMH: right breast cancer status post right mastectomy and chemotherapy 2000, arthritis, hyperlipidemia, hypertension, peripheral arterial disease in the lower extremities PSxH: Right breast mastectomy 2000, right thumb surgery, cyst removed from the groin, cyst removed from the left breast, tonsillectomy, appendectomy Social history: Patient lives at home with Reports EtOH use socially not on a daily basis With smoking and 1999 prior to that smoked half a pack a day for 20 years Family medical history: Heart disease, CVA, diabetes mellitus DS: Diagnosis - Discharge Diagnosis (1) Neurological symptoms Status: Acute DS: Medications - Discharge Medications Prescriptions: clopidogrel [Plavix] 75 mg PO DAILY 30 Days #30 tab DS: Summary Hospital Course: GENERAL: This is a well-nourished, well-developed patient, in no apparent distress. CARDIOVASCULAR: Regular rate and rhythm RESPIRATORY: Clear to auscultation. Breath sounds equal bilaterally. GASTROINTESTINAL: Abdomen soft, non-tender, nondistended. Normal active bowel sounds MUSCULOSKELETAL: Extremities without clubbing, cyanosis, or edema. NEURO: Alert & Oriented. Moves all ext x4. Bilateral upper and lower extremities equal strength. Mild resting facial droop on the right Results - Labs CBC & Chem 7: 08/11/18 19:51 08/11/18 19:51 Labs: Laboratory Results - last 24 hr 08/11/18 08/11/18 08/11/18 18:52 19:51 19:51 WBC 5.3 RBC 4.55 Hgb 14.3 Hct 43.1 MCV 94.9 MCH 31.4 MCHC 33.1 RDW 13.9 Plt Count 184 MPV 8.6 Neut % (Auto) 58.0 Lymph % (Auto) 28.8 [place] % (Auto) 9.5 H Eos % (Auto) 2.3 Baso % (Auto) 1.4 Neut # (Auto) 3.1 Lymph # (Auto) 1.5 [place] # (Auto) 0.5 Eos # (Auto) 0.1 Baso # (Auto) 0.1 WBC Differential . Differential Comment Auto diff final PT INR APTT Sodium 143 Potassium 3.5 Chloride 105 Carbon Dioxide 27.6 Anion Gap 10 BUN 22 H Creatinine 0.96 Estimated GFR 56 L Random Glucose 87 Calcium 9.0 Total Bilirubin 0.8 AST 42 H ALT 43 Alkaline Phosphatase 100 Total Creatine Kinase Troponin I Total Protein 7.3 Albumin 3.6 Urine Color Yellow Urine Clarity Clear Urine pH 6.0 Ur Specific [place] 1.015 Urine Protein Negative Urine Glucose (UA) Negative Urine Ketones Trace H Urine Occult Blood Negative Urine Nitrate Negative Urine Bilirubin Negative Urine Urobilinogen Less than 2 Ur Leukocyte Esterase Trace H Urine RBC Less than 1 Urine WBC 2 Ur Squamous Epith Cells 3 Urine Bacteria Rare H Hyaline Casts 4 Micro UA Comment Culture not ind Ur Microscopic Review Not Reportable Urine Culture Comments Culture not ind 08/11/18 08/11/18 19:51 19:51 WBC RBC Hgb Hct MCV MCH MCHC RDW Plt Count MPV Neut % (Auto) Lymph % (Auto) [place] % (Auto) Eos % (Auto) Baso % (Auto) Neut # (Auto) Lymph # (Auto) [place] # (Auto) Eos # (Auto) Baso # (Auto) WBC Differential Differential Comment PT 10.9 INR 1.1 APTT 24.5 Sodium Potassium Chloride Carbon Dioxide Anion Gap BUN Creatinine Estimated GFR Random Glucose Calcium Total Bilirubin AST ALT Alkaline Phosphatase Total Creatine Kinase 83 Troponin I Less than 0.02 L Total Protein Albumin Urine Color Urine Clarity Urine pH Ur Specific [place] Urine Protein Urine Glucose (UA) Urine Ketones Urine Occult Blood Urine Nitrate Urine Bilirubin Urine Urobilinogen Ur Leukocyte Esterase Urine RBC Urine WBC Ur Squamous Epith Cells Urine Bacteria Hyaline Casts Micro UA Comment Ur Microscopic Review Urine Culture Comments - Imaging Impressions Chest X-Ray 08/11/18 14:11 CONCLUSION: No acute cardiopulmonary disease. Head CT 08/11/18 14:11 CONCLUSION: 1. Mild to moderate periventricular and subcortical white matter small vessel ischemic changes bilaterally. 2. Scattered old tiny lacunar infarcts within the bilateral basal ganglia. 3. No acute infarct, acute hemorrhage, midline shift or extra-axial fluid collections. . Head MRI 08/11/18 19:35 CONCLUSION: 1. Moderate chronic ischemic changes in the periventricular white matter. No recent infarct. Remote small lacunar infarcts in the basal ganglia. Neck MRA 08/11/18 19:36 CONCLUSION: 1. Mild smooth stenoses of the proximal left subclavian artery and proximal internal carotid arteries bilaterally. No hemodynamically significant stenosis. No evidence for dissection. Right vertebral artery is patent. Left vertebral artery is diminutive but patent. Percent stenosis is calculated using the diameter of the stenotic region over the diameter of the normal distal internal carotid artery Head MRA 08/11/18 19:37 CONCLUSION: 1. No hemodynamically significant stenosis. Caprini VTE Risk Assessment Caprini VTE Risk Assessment: Moderate/High Risk (score >= 2) Caprini Risk Assessment Model: Point Value = 1 Point Value = 2 Point Value = 3 Point Value = 5 Age 41-60 Minor surgery BMI > 25 kg/m2 Swollen legs Varicose veins or History of unexplained or recurrent spontaneous Oral contraceptives or hormone replacement Sepsis (< 1 month) Serious lung disease, including pneumonia (< 1 month) Abnormal pulmonary function Acute myocardial infarction Congestive heart failure (< 1 month) History of inflammatory bowel disease Medical patient at bed rest Age 61-74 Arthroscopic surgery Major open surgery (> 45 min) Laparoscopic surgery (> 45 min) Malignancy Confined to bed (> 72 hours) Immobilizing plaster cast Central venous access Age >= 75 History of VTE Family history of VTE Factor V Leiden Prothrombin [id number] Lupus anticoagulant Anticardiolipin antibodies Elevated serum homocysteine Heparin-induced thrombocytopenia Other congenital or acquired thrombophilia Stroke (< 1 month) Elective arthroplasty Hip, pelvis, or leg fracture Acute spinal cord injury (< 1 month) Prophylaxis Regimen: Total Risk Factor Score Risk Level Prophylaxis Regimen 0-1 Low Early ambulation 2 Moderate Order ONE of the following: *Sequential Compression Device (SCD) *Heparin 5000 units SQ BID 3-4 Higher Order ONE of the following medications: *Heparin 5000 units SQ TID *Enoxaparin/Lovenox 40 mg SQ daily (WT < 150 kg, CrCl > 30 mL/min) *Enoxaparin/Lovenox 30 mg SQ daily (WT < 150 kg, CrCl > 10-29 mL/min) *Enoxaparin/Lovenox 30 mg SQ BID (WT < 150 kg, CrCl > 30 mL/min) AND/OR *Sequential Compression Device (SCD) 5 or more Highest Order ONE of the following medications: *Heparin 5000 units SQ TID (Preferred with Epidurals) *Enoxaparin/Lovenox 40 mg SQ daily (WT < 150 kg, CrCl > 30 mL/min) *Enoxaparin/Lovenox 30 mg SQ daily (WT < 150 kg, CrCl > 10-29 mL/min) *Enoxaparin/Lovenox 30 mg SQ BID (WT < 150 kg, CrCl > 30 mL/min) AND *Sequential Compression Device (SCD) Assessment and Plan - Assessment (1) Neurological symptoms Code(s): R29.90 - Unspecified symptoms and signs involving the nervous system Status: Acute Plan: This is a 77-year-old female patient with past medical history which includes right breast cancer status post right mastectomy and chemotherapy 2000, arthritis, hyperlipidemia, hypertension, peripheral arterial disease in the lower extremities. Patient presents to emergency department last night with complaints of constant right lower lip numbness/tingling since Saturday night. Patient denies difficulty swallowing changes in speech or difficulty with word finding. There is no upper or lower extremity weakness. Patient also denies headache fevers chills nausea vomiting diarrhea constipation shortness of breath or chest pain. TIA versus CVA Consult neurology, appreciate input per neurology Etiology would include demyelinating lesion versus right lower trigeminal neuropathy also Multiple sclerosis would be a possibility Imaging reviewed and includes Chest X-Ray 08/11/18 No acute cardiopulmonary disease. Head CT 08/11/18 1. Mild to moderate periventricular and subcortical white matter small vessel ischemic changes bilaterally. 2. Scattered old tiny lacunar infarcts within the bilateral basal ganglia. 3. No acute infarct, acute hemorrhage, midline shift or extra-axial fluid collections. Head MRI 08/11/18 1. Moderate chronic ischemic changes in the periventricular white matter. No recent infarct. Remote small lacunar infarcts in the basal ganglia. Neck MRA 08/11/18 1. Mild smooth stenoses of the proximal left subclavian artery and proximal internal carotid arteries bilaterally. No hemodynamically significant stenosis. No evidence for dissection. Right vertebral artery is patent. Left vertebral artery is diminutive but patent. Head MRA 08/11/18 1. No hemodynamically significant stenosis. Continue daily aspirin Normal saline at 70 cc/h 1 L Head of bed flat, allow permissive hypertension Per neurology: Continue aspirin Plavix Risk factor reduction blood pressure control If she states she bruises more easily on Plavix, will look at discontinuing it in 4-6 weeks We will follow her up in the outpatient setting. If her symptoms persist after a few weeks will need to consider a lumbar puncture Hyperlipidemia Continue home atorvastatin 80 mg p.o. daily Lipid profile pending Hypertension Hold patient's home lisinopril and verapamil to allow permissive hypertension Peripheral arterial disease in the lower extremities Patient is on aspirin daily DVT prophylaxis with SCDs - Time Spent with Patient Total time spent providing and/or coordinating discharge services: Greater than 30 minutes Exam Vital signs: Vital Signs 08/11/18 18:53 08/11/18 19:23 08/11/18 21:01 Temperature Pulse Rate 72 79 64 Respiratory Rate 16 18 20 Blood Pressure 217/85 H 224/92 H 189/76 H Pulse Oximetry 100 98 96 08/11/18 23:04 08/12/18 00:00 08/12/18 02:21 Temperature 97.2 F L 97.5 F L Pulse Rate 68 73 Respiratory Rate 18 16 16 Blood Pressure 167/72 H 180/74 H Pulse Oximetry 97 96 08/12/18 03:22 08/12/18 04:00 08/12/18 04:39 Temperature 97.8 F Pulse Rate 75 71 78 Respiratory Rate 15 Blood Pressure 181/79 H Pulse Oximetry 99 08/12/18 08:00 08/12/18 12:00 08/12/18 16:00 Temperature 97.8 F 98 F 97.9 F Pulse Rate 72 72 80 Respiratory Rate 16 16 16 Blood Pressure 185/76 H 171/62 H 173/74 H Pulse Oximetry 94 L 97 96 Intake & Output 08/11/18 08/12/18 08/12/18 18:59 06:59 18:59 Intake Total 1000.1 / 1000.1 Balance 1000.1 / 1000.1 Weight 72.575 kg 69.9 kg Intake: IV 1000.1 / 1000.1 NS Inj 1,000 ML @ 70 mls/hr IV. 1000.1 / 1000.1 CONT .[id number] [facility] Rx#:[id number] Other: # Voids 6 Weight On Admission 69.9 kg Narrative: GENERAL: This is a well-nourished, well-developed patient, in no apparent distress. CARDIOVASCULAR: Regular rate and rhythm RESPIRATORY: Clear to auscultation. Breath sounds equal bilaterally. GASTROINTESTINAL: Abdomen soft, non-tender, nondistended. Normal active bowel sounds MUSCULOSKELETAL: Extremities without clubbing, cyanosis, or edema. NEURO: Alert & Oriented. Moves all ext x4. Bilateral upper and lower extremities equal strength. Mild resting facial droop on the right Results Procedures completed during hospitalization: none Labs on day of discharge: Labs from last 24 hours 08/11/18 08/11/18 08/11/18 19:51 19:51 19:51 WBC 5.3 RBC 4.55 Hgb 14.3 Hct 43.1 MCV 94.9 MCH 31.4 MCHC 33.1 RDW 13.9 Plt Count 184 MPV 8.6 Neut % (Auto) 58.0 Lymph % (Auto) 28.8 [place] % (Auto) 9.5 H Eos % (Auto) 2.3 Baso % (Auto) 1.4 Neut # (Auto) 3.1 Lymph # (Auto) 1.5 [place] # (Auto) 0.5 Eos # (Auto) 0.1 Baso # (Auto) 0.1 WBC Differential . Differential Comment Auto diff final PT 10.9 INR 1.1 APTT 24.5 Sodium Potassium Chloride Carbon Dioxide Anion Gap BUN Creatinine Estimated GFR Random Glucose Calcium Total Bilirubin AST ALT Alkaline Phosphatase Total Creatine Kinase 83 Troponin I Less than 0.02 L Total Protein Albumin Urine Color Urine Clarity Urine pH Ur Specific [place] Urine Protein Urine Glucose (UA) Urine Ketones Urine Occult Blood Urine Nitrate Urine Bilirubin Urine Urobilinogen Ur Leukocyte Esterase Urine RBC Urine WBC Ur Squamous Epith Cells Urine Bacteria Hyaline Casts Micro UA Comment Ur Microscopic Review Urine Culture Comments 08/11/18 08/11/18 19:51 18:52 WBC RBC Hgb Hct MCV MCH MCHC RDW Plt Count MPV Neut % (Auto) Lymph % (Auto) [place] % (Auto) Eos % (Auto) Baso % (Auto) Neut # (Auto) Lymph # (Auto) [place] # (Auto) Eos # (Auto) Baso # (Auto) WBC Differential Differential Comment PT INR APTT Sodium 143 Potassium 3.5 Chloride 105 Carbon Dioxide 27.6 Anion Gap 10 BUN 22 H Creatinine 0.96 Estimated GFR 56 L Random Glucose 87 Calcium 9.0 Total Bilirubin 0.8 AST 42 H ALT 43 Alkaline Phosphatase 100 Total Creatine Kinase Troponin I Total Protein 7.3 Albumin 3.6 Urine Color Yellow Urine Clarity Clear Urine pH 6.0 Ur Specific [place] 1.015 Urine Protein Negative Urine Glucose (UA) Negative Urine Ketones Trace H Urine Occult Blood Negative Urine Nitrate Negative Urine Bilirubin Negative Urine Urobilinogen Less than 2 Ur Leukocyte Esterase Trace H Urine RBC Less than 1 Urine WBC 2 Ur Squamous Epith Cells 3 Urine Bacteria Rare H Hyaline Casts 4 Micro UA Comment Culture not ind Ur Microscopic Review Not Reportable Urine Culture Comments Culture not ind - Impressions ITS Impressions Chest X-Ray 08/11/18 14:11 CONCLUSION: No acute cardiopulmonary disease. Head CT 08/11/18 14:11 CONCLUSION: 1. Mild to moderate periventricular and subcortical white matter small vessel ischemic changes bilaterally. 2. Scattered old tiny lacunar infarcts within the bilateral basal ganglia. 3. No acute infarct, acute hemorrhage, midline shift or extra-axial fluid collections. . Head MRI 08/11/18 19:35 CONCLUSION: 1. Moderate chronic ischemic changes in the periventricular white matter. No recent infarct. Remote small lacunar infarcts in the basal ganglia. Neck MRA 08/11/18 19:36 CONCLUSION: 1. Mild smooth stenoses of the proximal left subclavian artery and proximal internal carotid arteries bilaterally. No hemodynamically significant stenosis. No evidence for dissection. Right vertebral artery is patent. Left vertebral artery is diminutive but patent. Percent stenosis is calculated using the diameter of the stenotic region over the diameter of the normal distal internal carotid artery Head MRA 08/11/18 19:37 CONCLUSION: 1. No hemodynamically significant stenosis. Discharge Plan - Discharge Disposition Patient Disposition: /Critical Access Hospital Service - Discharge Condition Condition: Stable - Discharge Order Discharge Orders: Discharge Order (Routine); Ordered 08/12/18 Ordered By: Haley Amanda - Discharge Details Anticipated Discharge Date: 08/12/18 - Physicians Team Primary Care Provider: UNKNOWN, Attending Provider: Sergei Razo Other Providers: Sukhdeep Spaulding MD
--- NOTE | 2018-08-12 17:19 | P.DCO ---
- Home Health Nursing Order: Medical education, Signs/symptoms of disease process, Nursing assessment with vital signs - Certification I have seen patient Dorinda Patiño on 08/12/18. My clinical findings support the need for the requested home health care services because: Medication compliance is questionable I certify that my clinical findings support that this patient is homebound because: Unsafe to leave home unassisted
[2018-08-12 19:45] LABS: Vitamin B12 410 pg/mL (193-986)
[2018-08-12 22:33] LABS: Hemoglobin A1c 6.1 % (4.3-6.0)
[2018-08-13 04:27] VITALS: RESP 18
[2018-08-13 05:35] LABS: Chol/HDL Ratio 2.3 Ratio; HDL Cholesterol 61.5 mg/dL (40.0-60.0)
[2018-08-13] MEDS ORDERED: Lisinopril 10 MG Tablet PO ONE (07:30)
[2018-08-13] MEDS ORDERED: Verapamil 120 MG Tablet PO ONE (08:00)
--- NOTE | 2018-08-13 08:07 | P.PNNEU ---
Subjective Subjective Comments: denies cp,dyspnea, focal weakness. still with mild rt corner of the lip numbness , no spread. Active Medications: Active Medications Acetaminophen (Tylenol) 500 mg PO Q6H PRN PRN Reason: headache Aspirin (Aspirin) 325 mg PO DAILY [facility] Last Admin: 08/12/18 13:29 Dose: 325 mg Atorvastatin Calcium (Lipitor) 80 mg PO DAILY [facility] Last Admin: 08/12/18 08:54 Dose: 80 mg Enalaprilat (Vasotec Inj) 1.25 mg IV.PUSH Q4H PRN PRN Reason: sbp > 220 Sodium Chloride (Ns Flush) 2 ml IV.FLUSH PRN PRN PRN Reason: FLUSH AFTER USING IV ACCESS Allergies/Adverse Reactions: Allergies Allergy/AdvReac Type Severity Reaction Status Date / Time acetaminophen [From Percocet] Allergy Vomiting Verified 08/11/18 18:46 betamethasone Allergy Hives Verified 08/11/18 18:46 [From Celestone] oxycodone [From Percocet] Allergy Vomiting Verified 08/11/18 18:46 Review of Systems All other systems reviewed negative except as stated in HPI Physical Exam Vital signs: Vital Signs 08/12/18 12:00 08/12/18 16:00 08/12/18 20:00 Temperature 98 F 97.9 F 98 F Pulse Rate 72 80 72 Respiratory Rate 16 16 18 Blood Pressure 171/62 H 173/74 H 173/76 H Pulse Oximetry 97 96 96 08/13/18 00:00 08/13/18 04:00 Temperature 98 F 97.8 F Pulse Rate 69 70 Respiratory Rate 20 18 Blood Pressure 158/64 H 188/81 H Pulse Oximetry 97 96 Intake & Output 08/12/18 08/13/18 08/13/18 18:59 06:59 18:59 Intake Total 2080.1 / 2080.1 Balance 2080.1 / 2080.1 Intake: IV 1000.1 / 1000.1 NS Inj 1,000 ML @ 70 mls/hr IV. 1000.1 / 1000.1 CONT .[id number] [facility] Rx#:[id number] Oral 1080 / 1080 Other: # Voids 8 5 Date of Last Bowel Movement 08/12/18 08/12/18 # Bowel Movements 1 1 Narrative: GENERAL: in NAD, SKIN: Warm and dry. HEAD: Atraumatic. Normocephalic. EYES: Pupils equal and round. No scleral icterus. ENT: No nasal bleeding or discharge. Mucous membranes pink and moist. NECK: Trachea midline. No JVD. CARDIOVASCULAR: Regular rate and rhythm. RESPIRATORY: No accessory muscle use. Clear to auscultation. GASTROINTESTINAL: Abdomen soft, non-tender, nondistended. MUSCULOSKELETAL: Extremities without clubbing, cyanosis, or edema. No obvious deformities. NEUROLOGICAL: Awake and alert. Oriented 3 no aphasia, fluent articulate, No facial asymmetry, ou 4mm reactive with ou surgical cataract extraction changes, slightly reduced pinprick corner of her right mouth slightly lower lip. Chin rest of her face was normal. no temporal tenderness. no ptosis no facial weakness OU 3-2mm, eomi, VFF, No drift, Motor grossly within normal limits. Five out of 5 muscle strength in the arms and legs. Tone normal in all 4 limbs, Sensory normal in all 4 extremities to pin, msr 1-2+ sym, no clonus, planterflexor, gait not assessed secondary fall risk PSYCHIATRIC: Appropriate mood and affect; insight and judgment normal. - Constitutional no acute distress - Routine HEENT Exam Head: Present: normocephalic Eye: Present: EOMI Objective Laboratory Results - last 24 hr 08/12/18 08/12/18 08/12/18 18:25 18:25 18:25 ESR 8 Hemoglobin A1c 6.1 H C-Reactive Protein Less than 0.29 Triglycerides Cholesterol LDL Cholesterol, Calc HDL Cholesterol Cholesterol/HDL Ratio Vitamin B12 410 TSH 2.040 08/13/18 03:54 ESR Hemoglobin A1c C-Reactive Protein Triglycerides 47 Cholesterol 142 LDL Cholesterol, Calc 71 HDL Cholesterol 61.5 H Cholesterol/HDL Ratio 2.30 Vitamin B12 TSH Review/Management - Diagnosis (1) Neurological symptoms Code(s): R29.90 - Unspecified symptoms and signs involving the nervous system Status: Acute Current Visit: Yes (2) Hypertension Code(s): I10 - Essential (primary) hypertension Status: Acute Current Visit : Yes (3) Hyperlipidemia Code(s): E78.5 - Hyperlipidemia, unspecified Status: Acute Current Visit: Yes (4) History of breast cancer Code(s): Z85.3 - Personal history of malignant neoplasm of breast Status: Acute Current Visit: Yes - Review/Management Plan: No acute stroke seen on MRI scan. Etiology would include demyelinating lesion versus right lower trigeminal neuropathy MRI brain scan demonstrates moderate white matter lesions and disease. Multiple sclerosis would be a possibility although is of older age he does not have a whole lot of other neurological symptoms. Emerging neuropathy or metabolic/infiltrating abnormality affecting trigeminal nerve is another possibility. There did not appear to be any mentalis nerve involvement however Recommendations neuro stable. esr/crp nml. lipids in range. mildly elevated hba1c. 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 If her symptoms persist after a few weeks will need to consider a lumbar puncture
[2018-08-13 09:08] VITALS: BP 189/80; PULSE 79; TEMP 98.4; O2SAT 97
[2018-08-13] MEDS: Aspirin 325 MG Tablet PO SCH (09:32)
--- NOTE | 2018-08-13 11:58 | P.PNIM ---
Subjective Interval history: nursing didn't send pt home last night due to no CM and C arrangement pt still with mild right cheek numbness Physical Exam Vital signs: Vital Signs 08/12/18 12:00 08/12/18 16:00 08/12/18 20:00 Temperature 98 F 97.9 F 98 F Pulse Rate 72 80 72 Respiratory Rate 16 16 18 Blood Pressure 171/62 H 173/74 H 173/76 H Pulse Oximetry 97 96 96 08/13/18 00:00 08/13/18 04:00 08/13/18 08:00 Temperature 98 F 97.8 F 98.4 F Pulse Rate 69 70 79 Respiratory Rate 20 18 Blood Pressure 158/64 H 188/81 H 189/80 H Pulse Oximetry 97 96 97 Intake & Output 08/12/18 08/13/18 08/13/18 18:59 06:59 18:59 Intake Total 2080.1 / 2080.1 Balance 2080.1 / 2080.1 Intake: IV 1000.1 / 1000.1 NS Inj 1,000 ML @ 70 mls/hr IV. 1000.1 / 1000.1 CONT .[id number] [facility] Rx#:[id number] Oral 1080 / 1080 Other: # Voids 8 5 Date of Last Bowel Movement 08/12/18 08/12/18 08/12/18 # Bowel Movements 1 1 no facial droop heart reg lung cta abd s/nt ext no edema Results - Labs CBC & Chem 7: 08/11/18 19:51 08/11/18 19:51 Laboratory Results - last 24 hr 08/12/18 08/12/18 08/12/18 18:25 18:25 18:25 ESR 8 Hemoglobin A1c 6.1 H C-Reactive Protein Less than 0.29 Triglycerides Cholesterol LDL Cholesterol, Calc HDL Cholesterol Cholesterol/HDL Ratio Vitamin B12 410 TSH 2.040 08/13/18 03:54 ESR Hemoglobin A1c C-Reactive Protein Triglycerides 47 Cholesterol 142 LDL Cholesterol, Calc 71 HDL Cholesterol 61.5 H Cholesterol/HDL Ratio 2.30 Vitamin B12 TSH - Procedures none Assessment and Plan - Assessment (1) Neurological symptoms Code(s): R29.90 - Unspecified symptoms and signs involving the nervous system Status: Acute Plan: Pt had concerning right lip/cheek numbess. sent to ED. 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 Pt will resume verapamil/lisinipril. I offered [facility] to check bp at home to get accurate numbers as she and claim her bp is always elevated in office/hospital due to white coat syndrome. She now refused [facility] and will get it checked at cardiac rehab. I discussed with her pcp.
[2018-08-16 23:53] LABS: DS DNA Ab (Crithidia) NEGATIVE (NEGATIVE)
== END 2018-08-13 09:56 | disposition home health service (06) ==
LOC: NEPE 14:05 → NEDA 21:11 → OBSVTOIN 21:11 → INTOOBSV 21:11 → NEDA 22:37 → N05 22:48
PROVIDERS: ADMIT Hospitalist; ATTEND Hospitalist